=== PATIENT | male | born 1980 | race Caucasian/White ===

== ENCOUNTER → 2016-05-26 | Outpatient (CLI) | payer OTHER ==
--- NOTE | 2016-05-26 10:45 | DIAGNOSTIC IMAGING REPORT ---
CHEST 2 VIEWS ROUTINE CLINICAL HISTORY: Hypertension. Family history of heart disease. COMPARISON STUDY: No previous studies for comparison. FINDINGS: The cardiac and mediastinal contours are normal. There is no evidence of focal pulmonary consolidation. There is no evidence of failure. No pleural effusions are visualized.[ IMPRESSION: No active disease in the chest. Electronically signed by: Hamlet Bialey M.D. 05/26/2016 10:44 AM
[2016-05-26 11:05] LABS: BASO % 0.6 %; BASO ABS # 0.05 K/uL (0-0.2); COMPLETE YES; EOS % 0.9 %; HEMATOCRIT 43.3 % (42-52); IG% 0.1 %; LYMPH % 35.8 %; MEAN CELL VOLUME 81.9 fL (80-100); MEAN CORPUSCULAR HEMOGLOBIN 28.9 pg (25-34); MEAN CORPUSCULAR HGB CONC 35.3 g/dl (32-36); MEAN PLATELET VOLUME 10.4 fL (7.4-10.4); NEUT % 58.6 %; PLATELET COUNT 235 K/uL (130-400); RED BLOOD COUNT 5.29 M/uL (4.7-6.1); WHITE BLOOD COUNT 8.66 K/uL (4.8-10.8)
[2016-05-26 11:12] LABS: URINE APPEARANCE CLEAR (CLEAR); URINE BILIRUBIN NEG (NEG); URINE COLOR YELLOW; URINE NITRITE NEG (NEG); URINE PH 6.5 (4.5-7.5); URINE SPECIFIC GRAVITY 1.029 (1.000-1.030); UROBILINOGEN NEG (NEG)
[2016-05-26 11:17] LABS: MANUAL MICROSCOPIC REQUIRED? NO; REVIEW REQ? NO
[2016-05-26 11:39] LABS: BLOOD UREA NITROGEN 15 mg/dl (7-18); BUN/CREATININE RATIO 12.1 (10-20); CALCIUM 9.3 mg/dl (8.5-10.1); CARBON DIOXIDE 26 mmol/L (21-32); CHLORIDE 106 mmol/L (98-107); CHOLESTEROL 195 mg/dl (0-200); GLUCOSE 90 mg/dl (70-99); POTASSIUM 4.1 mmol/L (3.5-5.1); SODIUM 141 mmol/L (136-145)
[2016-05-26 11:49] LABS: CHOLESTEROL/HDL RATIO 6.1; HDL CHOLESTEROL 32 mg/dl; LDL CHOLESTEROL CALCULATED 89 mg/dl; TRIGLYCERIDES 371 mg/dl (0-150); VERY LOW DENSITY LIPOPROT CALC 74 mg/dl
== END | disposition home or self-care (01) ==
LOC: C.RAD 09:32
DX: I10 Essential (primary) hypertension (principal); Z82.49 Family history of ischemic heart disease and other diseases of the circulatory system

== ENCOUNTER → 2016-11-17 | Outpatient (CLI) | payer OTHER ==
--- NOTE | 2016-11-17 17:15 | DIAGNOSTIC IMAGING REPORT ---
CHEST 2 VIEWS ROUTINE CLINICAL HISTORY: CHEST PAIN PT WENT TO LAB FIRST TO [facility] NEXT COMPARISON STUDY: 05/26/2016 FINDINGS: The bones soft tissues and hemidiaphragms are normal. The cardiomediastinal silhouette is normal. The lungs are clear. The pulmonary vasculature is normal. IMPRESSION: Negative chest. Electronically signed by: Matty Dinero M.D. 11/17/2016 5:14 PM Dictated Date/Time: 11/17/2016 5:13 PM
[2016-11-17 17:45] LABS: BASO % 0.5 %; BASO ABS # 0.04 K/uL (0-0.2); COMPLETE YES; EOS % 1.1 %; HEMATOCRIT 44.6 % (42-52); IG% 0.2 %; LYMPH % 31.3 %; LYMPH ABS # 2.67 K/uL (1.2-3.4); MEAN CELL VOLUME 84.5 fL (80-100); MEAN CORPUSCULAR HEMOGLOBIN 28.6 pg (25-34); MEAN CORPUSCULAR HGB CONC 33.9 g/dl (32-36); MEAN PLATELET VOLUME 10.3 fL (7.4-10.4); MONO % 4.9 %; PLATELET COUNT 244 K/uL (130-400); RED BLOOD COUNT 5.28 M/uL (4.7-6.1); WHITE BLOOD COUNT 8.52 K/uL (4.8-10.8)
[2016-11-17 18:03] LABS: BLOOD UREA NITROGEN 14 mg/dl (7-18); BUN/CREATININE RATIO 11.6 (10-20); CALCIUM 9.2 mg/dl (8.5-10.1); CARBON DIOXIDE 28 mmol/L (21-32); CHLORIDE 106 mmol/L (98-107); GLUCOSE 87 mg/dl (70-99); SODIUM 141 mmol/L (136-145)
== END | disposition home or self-care (01) ==
LOC: C.CPL 16:51
DX: R07.9 Chest pain, unspecified (principal)

== ENCOUNTER → 2016-12-09 | Outpatient (CLI) | payer OTHER ==
--- NOTE | 2016-12-09 18:11 | EXERCISE STRESS ECHO ---
*NOTICE TO RECEIVING [employer] This information is strictly Confidential and protected under [place] law. [place] law prohibits you from making any further disclosure of this information unless further disclosure is expressly permitted by the written consent of the person to whom it pertains or is authorized by law. A general authorization for the release of medical or other information is not sufficient for this purpose. Hospital accepts no responsibility if the information is made available to any other person, INCLUDING THE PATIENT. Interpretation Summary * Name: EHSAN JUAREZ Study Date: 12/09/2016 12:22 PM BP: 121/56 mmHg * Patient Location: [facility] HR: 53 * : 1980 (M/d/yyyy) Gender: Male Height: 74 in * Age: 36 yrs Ethnicity: [place] Weight: 276 lb * Ordering Physician: Alonso Curran * Referring Physician: Alonso Curran D.O. * Performed By: Laney Hamm RDCS * * Reason For Study: CHEST PAIN, HTN * BSA: 2.5 m2 * -- Conclusions -- * 1. Negative exercise stress echo for ischemia at 89% MPHR. * 2. Negative exercise ECG for ischemia. * 3. Normal functional capacity. Exercised for 8:07, achieving 10.1 METS. Low risk Jones Treadmill score. * 4. Normal resting LV size and function. LVEF 55-60%. Normal RV size and function. No significant valvular pathology. Procedure Details * ECHOEX, CPT #40542 * A contrast injection of Definity was performed to improve assessment of LV function. * Contrast was injected into an intravenous site in the right arm. * One vial of Definity ultrasound contrast was diluted in normal saline to a total volume of 10 ml. A total of '4' ml of solution was administered during imaging. * Lot # [id number] of Definity utilized for procedure. * Expiration date JAN 08. * The attending nurse who injected the contrast agent was ADEN SOTO RN. Left Ventricle * The left ventricle is grossly normal size. * There is normal left ventricular wall thickness. * Ejection Fraction = 55-60%. * No regional wall motion abnormalities noted. Right Ventricle * The right ventricle is grossly normal size. * The right ventricular systolic function is normal as assessed by tricuspid annular plane systolic excursion (TAPSE) (normal >1.5 cm). Atria * The left atrial size is normal. * Right atrial size is normal. * No ASD detected; PFO is not assessed. Mitral Valve * The mitral valve is grossly normal. * Mitral stenosis is absent. * Significant mitral regurgitation is absent. Tricuspid Valve * The tricuspid valve is not well visualized, but is grossly normal. * Significant tricuspid regurgitation is absent. Aortic Valve * The aortic valve opens well. * The aortic valve is trileaflet. * No hemodynamically significant valvular aortic stenosis. * Trace aortic regurgitation. Pulmonic Valve * The pulmonary valve is inadequately visualized, but the Doppler data is adequate for interpretation. * There is no significant pulmonary regurgitation. Great Vessels * The aortic root and proximal ascending aorta are normal sized. Pericardium * There is no pericardial effusion. Stress Parameters * Normal baseline electrocardiogram. * Stress ECG: No ST changes. No arrhythmias. * No arrhythmia were noted with stress. * The stress portion of this study was personally supervised by the undersigned interpreting physician. * Rest heart rate was '53' BPM. * Rest blood pressure was '121/56' * Maximum heart rate achieved was 166 bpm. * Maximum heart rate was 89 % of maximum age-predicted heart rate. * Maximum blood pressure was '169/70' * Total exercise time was '8:07' * Maximum exercise MET level achieved was '10.10' METS * Maximum treadmill speed was '3.40' miles per hour. * Maximum treadmill elevation was '14.00'% grade. * Exercise was terminated due to 'ACHIEVING TARGET HR' Left Ventricular Findings with Stress * The study was technically limited. * Parasternal images limited at stress. Apical views are diagnostic quality. MMode 2D Measurements and Calculations IVSd 0.69 cm IVSs 1.4 cm LVIDd 4.2 cm LVIDs 2.8 cm LVPWd 0.97 cm LVPWs 1.7 cm IVS/LVPW 0.71 FS 34.1 % EDV(Teich) 79.8 ml ESV(Teich) 29.3 ml EF(Teich) 63.4 % EDV(cubed) 75.6 ml ESV(cubed) 21.7 ml EF(cubed) 71.3 % % IVS thick 97.2 % % LVPW thick 75.3 % LV mass(C)d 107.5 grams LV mass(C)dI 43.1 grams/m\S\2 LV mass(C)s 148.9 grams LV mass(C)sI 59.7 grams/m\S\2 SV(Teich) 50.6 ml SI(Teich) 20.3 ml/m\S\2 SV(cubed) 53.9 ml SI(cubed) 21.6 ml/m\S\2 LA dimension 3.9 cm Doppler Measurements and Calculations MV E max maggi 89.2 cm/sec MV A max maggi 53.4 cm/sec MV E/A 1.7 MV dec time 0.23 sec Ao V2 max 144.2 cm/sec Ao max PG 8.3 mmHg Ao max PG (full) 4.3 mmHg LV V1 max PG 4.0 mmHg LV V1 max 99.9 cm/sec
== END | disposition home or self-care (01) ==
LOC: C.CPL 12:12
DX: R07.9 Chest pain, unspecified (principal); I15.9 Secondary hypertension, unspecified; E78.5 Hyperlipidemia, unspecified; Z82.49 Family history of ischemic heart disease and other diseases of the circulatory system